=== PATIENT | female | born 1975 | race Caucasian/White ===

== ENCOUNTER 2020-11-21 10:12 | Inpatient (IN) | payer MEDICAID ==
[~2020-11-21] VITALS: Ht 165.1 cm; Wt 90.3 kg
--- NOTE | 2020-11-21 10:20 | NUR ---
resp. notified of pt.
[2020-11-21 10:58] LABS: BASOPHILS 0 % (0-2); EOSINOPHILS 8.1 % (0-7); HEMATOCRIT 36.7 % (36.0-48.0); HEMOGLOBIN 12.1 g/dL (12-16); IMMATURE GRANULOCYTES 0.6 % (0-5); LYMPHOCYTE ABS# 0.23 10x3/uL (1.18-3.74); LYMPHOCYTES 2.2 % (15-50); MCH 26.9 pg (26.0-34.0); MCV 81.7 fL (80.0-100.0); MEAN PLATELET VOLUME 10.6 fL (7.4-10.4); MONOCYTES 5.5 % (2-11); NEUTROPHIL ABS# 8.86 10x3/uL (1.56-6.13); NEUTROPHILS 83.6 % (40-80); PLATELET COUNT 155 10x3/uL (130-400); RBC 4.49 10x6/uL (4.00-5.40); RDW 14.7 % (11.5-14.5); WBC 10.6 10x3/uL (4.8-10.8)
[2020-11-21 11:06] LABS: CALC OSMOLALITY 268 mosm/kg (275-300); CALCIUM 8.7 mg/dL (8.5-10.1); CARBON DIOXIDE 22.3 mmol/L (21.0-32.0); CHLORIDE - SERUM 98 mmol/L (98-107); CREATININE - SERUM 1.3 mg/dL (0.6-1.3); GLUCOSE 98 mg/dL (74-106); POTASSIUM - SERUM 4.1 mmol/L (3.5-5.1); SODIUM 134 mmol/L (136-145); UREA NITROGEN 14 mg/dL (7-18); eGFR NON AFRICAN AMERICAN 47 mL/min (90-120)
[2020-11-21 11:07] LABS: APTT 36.7 SECONDS (22.8-39.4); INR 1.15 (0.85-1.17); PROTIME 13.7 SECONDS (11.6-15.0)
[2020-11-21 11:15] LABS: D-DIMER-QUANTITATIVE 2.37 ug/mLFEU (0.20-0.54)
[2020-11-21 11:24] LABS: ALBUMIN 2.9 g/dL (3.4-5.0); ALKALINE PHOSPHATASE 191 U/L (30-120); ALT (SGPT) 143 U/L (10-68); BILIRUBIN - TOTAL 1.04 mg/dL (0.2-1.3); CKMB 0.4 U/L (0.0-3.6); CREATINE KINASE 50 UL (21-215); PRO BNP 262 pg/mL (0-125); PROTEIN - SERUM 7.2 g/dL (6.4-8.2)
[2020-11-21 11:39] LABS: TROPONIN-I < 0.017 ng/mL (0.000-0.060)
[2020-11-21 12:03] LABS: BILIRUBIN 2+ (NEGATIVE); KETONE MODERATE mg/dL (NEGATIVE); NITRITE NEGATIVE (NEGATIVE); UROBILINOGEN 4 mg/dL (< 2)
[2020-11-21 12:04] LABS: BACTERIA MODERATE HPF (NONE SEEN); SQUAMOUS EPITHELIAL 0-5 HPF (0-4)
[2020-11-21 12:06] LABS: GRANULAR CAST 1 LPF (NONE SEEN)
[2020-11-21 12:31] VITALS: BP 90/34
[2020-11-21 13:06] VITALS: BP 86/51
[2020-11-21 13:24] VITALS: BP 93/56
[2020-11-21 14:09] LABS: SARS-CoV-2 ANTIGEN NEGATIVE- SARS-COV-2 (NEGATIVE)
--- NOTE | 2020-11-21 14:11 | NUR ---
SPOKE WITH NURSE AT [facility] REGARDING PT'S PSYCH DX PT WAS SENT TO US FROM THEIR FACILITY. NURSE STATES THAT PT WAS ADMITTED FOR SI, BIPOLAR W/PSYCHOTIC FEATURES, BORDERLINE PERSONALITY. NURSE STATES THAT THE PT'S HAS C/O SI HAS BEEN INTERMITTENT THE LAST SEVERAL DAYS. THE LAST DOCUMENTED "YES" TO SI WAS 11/19. PT WILL BE ADMITTED FOR PNEUMONIA A PUI AND A VISUAL MONITOR WILL BE PLACED IN PT'S ROOM FOR SAFETY. THE PT WILL BE EVALUATED BY PSYCH SERVICES WHEN FEELING BETTER MEDICALLY AND/OR NEEDED.
--- NOTE | 2020-11-21 14:27 | NUR ---
RECEIVED REPORT FROM ED. PATIENT TO UNIT SOON.
--- NOTE | 2020-11-21 14:35 | NUR ---
PATIENT ARRIVED TO UNIT VIA WHEELCHAIR FROM ED AND ADMITTED TO ROOM 2139. PATIENT PLACED IN DROPLET ISOLATION FOR PUI. COVID ANTIGEN NEGATIVE, AWAITING PCR TO RESULT. PATIENT ALERT/ORIENTED, DENIES ANY SUICIDIAL IDEATION TODAY. PATIENT IS PLACED ON VIDEO SO SHE CAN BE MONITORED WHILE ON DROPLET ISOLATION, PATIENT MADE AWARE SHE IS ON VIDEO. CALL LIGHT WITHIN REACH. NO DISTRESS.
[2020-11-21 16:07] VITALS: BP 94/58; BMI 33.1
--- NOTE | 2020-11-21 17:16 | NUR ---
RESTING IN BED WITH EYES OPEN, NO DISTRESS. CALL WITHIN REACH.
[2020-11-21] MEDS ORDERED: NEURONTIN600 MG PO (18:28)
[2020-11-21] MEDS ORDERED: DEPAKOTE500 MG PO (18:28)
[2020-11-21] MEDS ORDERED: MINIPRESS2 MG PO (18:29)
--- NOTE | 2020-11-21 19:30 | NUR ---
PT IN BED, AAO X 4, RESP EVEN AND UNLABORED, NO DISTRESS NOTED, CL IN REACH, SR UP X 2.
[2020-11-21 21:46] VITALS: BP 87/44
[2020-11-22 00:15] VITALS: BP 104/80
[2020-11-22 05:35] VITALS: BP 98/52
[2020-11-22 06:33] LABS: BASOPHILS 0.1 % (0-2); EOSINOPHILS 0.5 % (0-7); HEMATOCRIT 32.8 % (36.0-48.0); HEMOGLOBIN 10.8 g/dL (12-16); IMMATURE GRANULOCYTES 0.6 % (0-5); LYMPHOCYTE ABS# 0.33 10x3/uL (1.18-3.74); LYMPHOCYTES 3.9 % (15-50); MCH 26.7 pg (26.0-34.0); MCHC 32.9 g/dL (31.0-37.0); MEAN PLATELET VOLUME 10.3 fL (7.4-10.4); MONOCYTES 5.9 % (2-11); NEUTROPHIL ABS# 7.54 10x3/uL (1.56-6.13); PLATELET COUNT 134 10x3/uL (130-400); RBC 4.05 10x6/uL (4.00-5.40); RDW 14.2 % (11.5-14.5); WBC 8.5 10x3/uL (4.8-10.8)
--- NOTE | 2020-11-22 07:20 | NUR ---
RECIEVE REPORT. RESTING IN BED WITH EYES CLOSED. DENIES ANY NEEDS. CONTINUE PLAN OF CARE AND SAFETY PRECAUTIONS.
[2020-11-22 07:30] LABS: ALBUMIN 2.4 g/dL (3.4-5.0); ALKALINE PHOSPHATASE 162 U/L (30-120); ALT (SGPT) 114 U/L (10-68); BILIRUBIN - TOTAL 0.54 mg/dL (0.2-1.3); C-REACTIVE PROTEIN 13.6 mg/dL (0.0-0.9); CALCIUM 9.1 mg/dL (8.5-10.1); CARBON DIOXIDE 22.3 mmol/L (21.0-32.0); CHLORIDE - SERUM 103 mmol/L (98-107); FERRITIN 226 ng/mL (3-244); GLUCOSE 129 mg/dL (74-106); LDH 192 U/L (81-234); POTASSIUM - SERUM 4.6 mmol/L (3.5-5.1); PROTEIN - SERUM 6.4 g/dL (6.4-8.2); SODIUM 136 mmol/L (136-145)
[2020-11-22 07:36] LABS: CALC OSMOLALITY 275 mosm/kg (275-300); CREATININE - SERUM 0.8 mg/dL (0.6-1.3); UREA NITROGEN 19 mg/dL (7-18); eGFR NON AFRICAN AMERICAN 82 mL/min (90-120)
[2020-11-22 08:19] VITALS: BP 124/54
[2020-11-22 12:26] VITALS: BP 103/67
[2020-11-22 20:00] VITALS: BP 101/55
[2020-11-23 01:26] VITALS: BP 107/90
[2020-11-23 05:25] VITALS: BP 100/52
[2020-11-23 07:03] LABS: BASOPHILS 0.2 % (0-2); EOSINOPHILS 5.3 % (0-7); HEMATOCRIT 30.2 % (36.0-48.0); HEMOGLOBIN 9.7 g/dL (12-16); IMMATURE GRANULOCYTES 0.5 % (0-5); LYMPHOCYTES 6.9 % (15-50); MCH 26.1 pg (26.0-34.0); MCHC 32.1 g/dL (31.0-37.0); MCV 81.2 fL (80.0-100.0); MEAN PLATELET VOLUME 10.4 fL (7.4-10.4); MONOCYTES 13.4 % (2-11); NEUTROPHIL ABS# 7.51 10x3/uL (1.56-6.13); NEUTROPHILS 73.7 % (40-80); PLATELET COUNT 154 10x3/uL (130-400); RBC 3.72 10x6/uL (4.00-5.40); RDW 14.8 % (11.5-14.5); WBC 10.2 10x3/uL (4.8-10.8)
[2020-11-23 07:19] LABS: ALBUMIN 2.3 g/dL (3.4-5.0); ALKALINE PHOSPHATASE 146 U/L (30-120); ALT (SGPT) 118 U/L (10-68); BILIRUBIN - TOTAL 0.19 mg/dL (0.2-1.3); CALC OSMOLALITY 279 mosm/kg (275-300); CALCIUM 8.5 mg/dL (8.5-10.1); CHLORIDE - SERUM 108 mmol/L (98-107); CREATININE - SERUM 0.8 mg/dL (0.6-1.3); GLUCOSE 96 mg/dL (74-106); POTASSIUM - SERUM 4.1 mmol/L (3.5-5.1); PROTEIN - SERUM 5.9 g/dL (6.4-8.2); SODIUM 140 mmol/L (136-145); UREA NITROGEN 15 mg/dL (7-18); eGFR NON AFRICAN AMERICAN 82 mL/min (90-120)
--- NOTE | 2020-11-23 07:20 | NUR ---
RECIEVE REPORT. ALERT AND ORIENTED X4. SITTING UP IN BED WATCHING TV. DENIES ANY NEEDS. CONTINUE PLAN OF CARE AND SAFETY PRECAUTIONS.
[2020-11-23 09:45] VITALS: BP 108/62
[2020-11-23 13:20] VITALS: BP 110/67
[2020-11-23 21:00] VITALS: BP 101/63
[2020-11-24] VITALS: BP 113/69
[2020-11-24 04:00] VITALS: BP 108/50
--- NOTE | 2020-11-24 07:10 | NUR ---
Lying in bed, awake/alert/oriented, T/R self ad stanley, cont of B/B with BRPs per self ad stanley, denies pain/other discomfort at this time, call light/phone/water within reach, no s/s of acute distress observed.
[2020-11-24 07:15] LABS: IMMUNOGLOBULIN A 154 mg/dL (87-352); IMMUNOGLOBULIN G 832 mg/dL (586-1602)
[2020-11-24 08:13] VITALS: BP 104/69
[2020-11-24 16:08] VITALS: BP 108/56
--- NOTE | 2020-11-24 19:30 | NUR ---
PT IN BED, AAO X 4, RESP EVEN AND UNLABORED, NO DISTRESS NOTED, CL IN REACH, SR UP X 2.
[2020-11-24 21:00] VITALS: BP 163/83
[2020-11-25] VITALS: BP 118/68
--- NOTE | 2020-11-25 00:16 | NUR ---
I have reviewed this patient and I concur with the Shift Assessment completed by the Licensed Practical Nurse today this shift.
[2020-11-25 04:00] VITALS: BP 109/49
--- NOTE | 2020-11-25 07:20 | NUR ---
Sitting up in bed, awake/alert/oriented, T/R self ad stanley, cont of B/B with BRPs per self ad stanley, c/o throbbing LUTHER rated 9/10, medicated as ordered (see MAR), call light/phone/water within reach, no s/s of acute distress observed.
[2020-11-25 07:38] VITALS: BP 114/69
--- NOTE | 2020-11-25 09:00 | NUR ---
Received notice that pt is negative for Covid, called infection control and received ok to take off isolation at this time.
--- NOTE | 2020-11-25 09:51 | MORECARE ---
CASE MANAGEMENT DISCHARGE SUMMARY PATIENT: CONOR WAGNER UNIT: [id number] ADM DATE: 11/21/20 AGE: 45 : 76 SEX: F ROOM/BED: D.2139 AUTHOR: PRINCE,DOC PHYSICIAN: REFERRING PHYSICIAN: JOHNIE SPENCER MD DATE OF SERVICE: 11/25/20 Case Management Discharge Planning Summary DCP REVIEW SUMMARY ANTICIPATED D/C DATE: 11/25/2020 EXPECTED LOS : 4 CASE STATUS: DCP Initiated INITIAL REVIEW: 11/21/2020 INITIAL REVIEWER: Beatriz Boogie FINAL DISCHARGE DISPOSITION: : FINAL REVIEWER: FINAL REVIEW DATE: DCP Focus Questions & Answers QUESTION: ANSWER : PATIENT: CONOR WAGNER ENCOUNTER: [id number] MEDICAL RECORD#: [id number] ADMISSION DATE: 11/21/2020 DISCHARGE DATE: ATTENDING MD: : AGE: 45 MARITAL STATUS: W DC PLAN ID: [id number] FACILITY: [facility] PRINTED ON: 11/25/20 9:51 CT All edits/amendments must be made on the electronic document DICTATION DATE: 11/25/20950 MEDICAL SERVICES MANAGER: DM 11/25/20950 RPT#: [id number] DC DATE: STATUS: ADM IN [facility] [address] [place] [address] END OF REPORT
[2020-11-25] MEDS ORDERED: LEVAQUIN750 MG PO (09:59)
[2020-11-25] MEDS ORDERED: DULERA 100 MCG8.8 GM INH (10:00)
[2020-11-25] MEDS ORDERED: PROAIR HFA8.5 G1 INH (10:00)
--- NOTE | 2020-11-25 10:02 | MORECARE ---
CASE MANAGEMENT DISCHARGE SUMMARY PATIENT: CONOR WAGNER UNIT: [id number] ADM DATE: 11/21/20 AGE: 45 : 76 SEX: F ROOM/BED: D.3909 AUTHOR: PRINCE,DOC PHYSICIAN: REFERRING PHYSICIAN: JOHNIE SPENCER MD DATE OF SERVICE: 11/25/20 Case Management Discharge Planning Summary COMMENTS ENTERED DATE: 11/25/20 9:49 CT COMMENT TYPE: Discharge Planning REVIEWER: Beatriz Boogie CM MET WITH PATIENT THIS AM TO DISCUSS DCP AND ASSESS NEEDS. PT STATES THAT SHE IS A PATIENT AT [facility] FOR SUICIDAL IDEATIONS FOR 2-3 DAYS PRIOR TO THIS VISIT. PT STATES SHE WAS TRANSFERED TO [facility] FROM AN OUTSIDE HOSPITAL IN [facility]. PT STATES SHE HAS BEEN A PATIENT THERE FOR 2 DAYS AND BECAME INCREASINGLY SHORT OF BREATH. PT VOICES DESIRE TO RETURN TO [facility] AND COMPLETE HER STAY AND TREATMENT PLAN THERE. PT HAS BEEN DETERMINED TO BE MEDICALLY STABLE AND DISCHARGED FROM HOSPITAL. [facility] NOTIFIED BY THIS CM AND WAS INFORMED BY LORNA RN THAT SHE WAS NOT SEEING ANY INFORMATION ON THIS PATIENT. SHE PLANS TO LOOK FURTHER INTO THIS PATIENT AND CALL CM BACK. PT STATES ALL HER BELONGINGS ARE AT [facility] AND OTHERWISE SHE IS HOMELESS. FOLLOW UP CALL RECEIVED FROM LORNA AND REQUESTED CLINICAL DOCUMENTATION WILL BE FAXED TO HER AT [phone]. DCP REVIEW SUMMARY ANTICIPATED D/C DATE: 11/25/2020 EXPECTED LOS : 4 CASE STATUS: DCP Initiated INITIAL REVIEW: 11/21/2020 INITIAL REVIEWER: Beatriz Boogie FINAL DISCHARGE DISPOSITION: : FINAL REVIEWER: FINAL REVIEW DATE: DCP Focus Questions & Answers QUESTION: ANSWER : PATIENT: CONOR WAGNER ENCOUNTER: [id number] MEDICAL RECORD#: [id number] ADMISSION DATE: 11/21/2020 DISCHARGE DATE: ATTENDING MD: : AGE: 45 MARITAL STATUS: W DC PLAN ID: [id number] FACILITY: [facility] PRINTED ON: 11/25/20 10:01 CT All edits/amendments must be made on the electronic document DICTATION DATE: 11/25/20 100 PREPARED FOODS TEAM LEADER: BLAYNE 11/25/20 1001 RPT#: [id number] DC DATE: STATUS: ADM IN [facility] [address] [place] [address] END OF REPORT
[2020-11-25] MEDS ORDERED: TESSALON PERLE100 MG PO (10:03)
[2020-11-25] MEDS ORDERED: FLORAJEN DIGES1 EACH PO (10:04)
[2020-11-25] MEDS ORDERED: MUCINEX DM ER1 EAC1 PO (10:05)
--- NOTE | 2020-11-25 12:15 | NUR ---
Provided written/verbal discharge instructions to which pt voiced understanding, awaiting decision from [facility] as to whether she will be returning to them.
[2020-11-25 13:12] LABS: PROCALCITONIN 0.68 ng/mL (0.00-0.08)
--- NOTE | 2020-11-25 15:45 | MORECARE ---
CASE MANAGEMENT DISCHARGE SUMMARY PATIENT: CONOR WAGNER UNIT: [id number] ADM DATE: 11/21/20 AGE: 45 : 76 SEX: F ROOM/BED: D.5488 AUTHOR: PRINCE,DOC PHYSICIAN: REFERRING PHYSICIAN: JOHNIE SPENCER MD DATE OF SERVICE: 11/25/20 Case Management Discharge Planning Summary COMMENTS ENTERED DATE: 11/25/20 9:49 CT COMMENT TYPE: Discharge Planning REVIEWER: Beatriz Boogie CM MET WITH PATIENT THIS AM TO DISCUSS DCP AND ASSESS NEEDS. PT STATES THAT SHE IS A PATIENT AT [facility] FOR SUICIDAL IDEATIONS FOR 2-3 DAYS PRIOR TO THIS VISIT. PT STATES SHE WAS TRANSFERED TO [facility] FROM AN OUTSIDE HOSPITAL IN [facility]. PT STATES SHE HAS BEEN A PATIENT THERE FOR 2 DAYS AND BECAME INCREASINGLY SHORT OF BREATH. PT VOICES DESIRE TO RETURN TO [facility] AND COMPLETE HER STAY AND TREATMENT PLAN THERE. PT HAS BEEN DETERMINED TO BE MEDICALLY STABLE AND DISCHARGED FROM HOSPITAL. [facility] NOTIFIED BY THIS CM AND WAS INFORMED BY LORNA RN THAT SHE WAS NOT SEEING ANY INFORMATION ON THIS PATIENT. SHE PLANS TO LOOK FURTHER INTO THIS PATIENT AND CALL CM BACK. PT STATES ALL HER BELONGINGS ARE AT [facility] AND OTHERWISE SHE IS HOMELESS. FOLLOW UP CALL RECEIVED FROM LORNA AND REQUESTED CLINICAL DOCUMENTATION WILL BE FAXED TO HER AT [phone]. Appended by Beatriz Boogie on 11/25/2020 15:43 CDT: UPDATE TO PREVIOUS NOTE, HAVE FAXED REQUESTED DOCUMENTS TO [facility]. RECEIVED CALL FROM LORNA THAT PATIENT NO LONGER MEETS CRITERIA FOR ADMITTANCE. ORDER OBTAINED FOR PSYCH EVAL TO FACILITATE DISCHARGE. WILL FOLLOW UP ONCE EVAL IS COMPLETED. DCP REVIEW SUMMARY ANTICIPATED D/C DATE: 11/25/2020 EXPECTED LOS : 4 CASE STATUS: DCP Initiated INITIAL REVIEW: 11/21/2020 INITIAL REVIEWER: Beatriz Boogie FINAL DISCHARGE DISPOSITION: : FINAL REVIEWER: FINAL REVIEW DATE: DCP Focus Questions & Answers QUESTION: ANSWER : PATIENT: CONOR WAGNER ENCOUNTER: [id number] MEDICAL RECORD#: [id number] ADMISSION DATE: 11/21/2020 DISCHARGE DATE: ATTENDING MD: : AGE: 45 MARITAL STATUS: W DC PLAN ID: [id number] FACILITY: [facility] PRINTED ON: 11/25/20 15:45 CT All edits/amendments must be made on the electronic document DICTATION DATE: 11/25/20 154 CORRECTIONAL MAINTENANCE TECHNICIAN: BLAYNE 11/25/201544 RPT#: [id number] DC DATE: STATUS: ADM IN [facility] [address] [place] [address] END OF REPORT
[2020-11-25 16:08] VITALS: BP 124/77
--- NOTE | 2020-11-25 16:16 | NUR ---
Has been crying all afternoon and stressing over her placement after discharging, paged Dr. Giordano.
--- NOTE | 2020-11-25 16:25 | NUR ---
Received order from Dr. Westbrook for Ativan 0.5mg PO q6h PRN.
--- NOTE | 2020-11-25 19:30 | NUR ---
PT IN BED, AAO X 4, RESP EVEN AND UNLABORED, NO DISTRESS NOTED, CL IN REACH, SR UP X 2.
[2020-11-25 21:00] VITALS: BP 119/65
[2020-11-26] VITALS: BP 105/46
[2020-11-26 04:00] VITALS: BP 98/51
--- NOTE | 2020-11-26 04:10 | NUR ---
I have reviewed this patient and I concur with the Shift Assessment completed by the Licensed Practical Nurse today this shift.
--- NOTE | 2020-11-26 07:40 | NUR ---
Sitting up in bed, awake/alert/oriented, T/R self ad stanley, cont of B/B with BRPs per self ad stanley, denies pain/other discomfort at this time, call light/phone/water within reach, no s/s of acute distress observed.
[2020-11-26 08:40] VITALS: BP 102/70
[2020-11-26 11:40] VITALS: BP 101/67
--- NOTE | 2020-11-26 15:20 | NUR ---
In room yelling/stomping/screaming in frustration, went in and encouraged to use calming techniques, like slow deep breathing and yoga-like centering, to calm herself.
--- NOTE | 2020-11-26 16:00 | NUR ---
Lying in room with eyes closed and slow/deep respirations.
[2020-11-26 19:09] LABS: IMMUNOGLOBULIN E 115 IU/mL (6-495)
--- NOTE | 2020-11-26 19:30 | NUR ---
PT UP ON SIDE OF BED, AAO X 4, RESP EVEN AND UNLABORED, NO DISTRESS NOTED, CL IN REACH, SR UP X 2.
--- NOTE | 2020-11-26 19:49 | MORECARE ---
CASE MANAGEMENT DISCHARGE SUMMARY PATIENT: CONOR WAGNER UNIT: [id number] ADM DATE: 11/21/20 AGE: 45 : 77 SEX: F ROOM/BED: D.1579 AUTHOR: PRINCE,DOC PHYSICIAN: REFERRING PHYSICIAN: JOHNIE SPENCER MD DATE OF SERVICE: 11/26/20 Case Management Discharge Planning Summary COMMENTS ENTERED DATE: 11/26/20 19:37 CT COMMENT TYPE: Discharge Planning REVIEWER: Ciltalli Davis CM sent referral to [facility] in [place] and they called back denied patient d/t not clinically in need for acute inpatient psych. CM sent updated notes to [facility] awaiting a determination. CM received a call from Kera Luevano with Psych she stated that she had spoken with [facility] and they need additional documentation on patient and she plans to put that documentation in chart tonight so CM can send referral back to [facility] in am. ENTERED DATE: 11/25/20 9:49 CT COMMENT TYPE: Discharge Planning REVIEWER: Beatriz Boogie CM MET WITH PATIENT THIS AM TO DISCUSS DCP AND ASSESS NEEDS. PT STATES THAT SHE IS A PATIENT AT [facility] FOR SUICIDAL IDEATIONS FOR 2-3 DAYS PRIOR TO THIS VISIT. PT STATES SHE WAS TRANSFERED TO [facility] FROM AN OUTSIDE HOSPITAL IN [facility]. PT STATES SHE HAS BEEN A PATIENT THERE FOR 2 DAYS AND BECAME INCREASINGLY SHORT OF BREATH. PT VOICES DESIRE TO RETURN TO [facility] AND COMPLETE HER STAY AND TREATMENT PLAN THERE. PT HAS BEEN DETERMINED TO BE MEDICALLY STABLE AND DISCHARGED FROM HOSPITAL. [facility] NOTIFIED BY THIS CM AND WAS INFORMED BY LORNA RODRIGUEZ THAT SHE WAS NOT SEEING ANY INFORMATION ON THIS PATIENT. SHE PLANS TO LOOK FURTHER INTO THIS PATIENT AND CALL CM BACK. PT STATES ALL HER BELONGINGS ARE AT [facility] AND OTHERWISE SHE IS HOMELESS. FOLLOW UP CALL RECEIVED FROM LORNA AND REQUESTED CLINICAL DOCUMENTATION WILL BE FAXED TO HER AT [phone]. Appended by Beatriz Boogie on 11/25/2020 15:43 CDT: UPDATE TO PREVIOUS NOTE, HAVE FAXED REQUESTED DOCUMENTS TO [facility]. RECEIVED CALL FROM LORNA THAT PATIENT NO LONGER MEETS CRITERIA FOR ADMITTANCE. ORDER OBTAINED FOR PSYCH EVAL TO FACILITATE DISCHARGE. WILL FOLLOW UP ONCE EVAL IS COMPLETED. DCP REVIEW SUMMARY ANTICIPATED D/C DATE: 11/25/2020 EXPECTED LOS : 4 CASE STATUS: DCP Initiated INITIAL REVIEW: 11/21/2020 INITIAL REVIEWER: Beatriz Boogie FINAL DISCHARGE DISPOSITION: : FINAL REVIEWER: FINAL REVIEW DATE: DCP Focus Questions & Answers QUESTION: ANSWER : PATIENT: CONOR WAGNER ENCOUNTER: [id number] MEDICAL RECORD#: [id number] ADMISSION DATE: 11/21/2020 DISCHARGE DATE: ATTENDING MD: : AGE: 45 MARITAL STATUS: W DC PLAN ID: [id number] FACILITY: [facility] PRINTED ON: 11/26/20 19:48 CT All edits/amendments must be made on the electronic document DICTATION DATE: 11/26/201947 OUTBOUND SALES SPECIALIST: BLAYNE 11/26/201947 RPT#: [id number] DC DATE: STATUS: ADM IN [facility] [address] [place] [address] END OF REPORT
[2020-11-26 23:18] VITALS: BP 107/66
[2020-11-27 05:18] VITALS: BP 106/60
--- NOTE | 2020-11-27 06:50 | NUR ---
PT LYING IN BED WITH EYES CLOSED. RAISES TO VERBAL STIMULI. RESP EVEN AND UNLABORED. AAO X4. DENIES NEEDS AT THIS TIME. CLIR. BED IN LOWEST POSITION. SIDE RAILS X2
[2020-11-27 08:13] VITALS: BP 113/61
[2020-11-27 12:41] VITALS: BP 113/65
[2020-11-27 14:16] VITALS: Ht 165.1 cm; Wt 90.3 kg
--- NOTE | 2020-11-27 15:51 | NUR ---
PT TOLD DR. SPENCER THAT SHE WAS HAVING SUICIDAL THOUGHTS. PT ANSWERED YES TO ALL QUESTIONS IN SUICIDAL SCREENING TOOL. CHARGE NURSE, NIURKA RODRIGUEZ, NOTIFIED. [facility] NOTIFIED, AND THEY SAID PT WAS SCREENED YESTERDAY AND THERE WAS NOTHING MORE TO DO. CASE MANAGEMENT NOTIFIED. PT RECIEVED PLACEMENT TO [facility]. ESDRASTER AT BEDSIDE.
--- NOTE | 2020-11-27 16:06 | MORECARE ---
CASE MANAGEMENT DISCHARGE SUMMARY PATIENT: CONOR WAGNER UNIT: [id number] ADM DATE: 11/21/20 AGE: 45 : 77 SEX: F ROOM/BED: D.0249 AUTHOR: PRINCE,DOC PHYSICIAN: REFERRING PHYSICIAN: JOHNIE SPENCER MD DATE OF SERVICE: 11/27/20 Case Management Discharge Planning Summary COMMENTS ENTERED DATE: 11/27/20 15:53 CT COMMENT TYPE: Discharge Planning REVIEWER: Beatriz Boogie Pt accepted back to [facility] today per Olvin. Pt nurse Liliana informed phone number given for report. ENTERED DATE: 11/26/20 19:37 CT COMMENT TYPE: Discharge Planning REVIEWER: Citlalli Davis CM sent referral to [facility] in [place] and they called back denied patient d/t not clinically in need for acute inpatient psych. CM sent updated notes to [facility] awaiting a determination. CM received a call from Kera Luevano with Psych she stated that she had spoken with [facility] and they need additional documentation on patient and she plans to put that documentation in chart tonight so CM can send referral back to [facility] in am. ENTERED DATE: 11/25/20 9:49 CT COMMENT TYPE: Discharge Planning REVIEWER: Beatriz Boogie CM MET WITH PATIENT THIS AM TO DISCUSS DCP AND ASSESS NEEDS. PT STATES THAT SHE IS A PATIENT AT [facility] FOR SUICIDAL IDEATIONS FOR 2-3 DAYS PRIOR TO THIS VISIT. PT STATES SHE WAS TRANSFERED TO [facility] FROM AN OUTSIDE HOSPITAL IN [facility]. PT STATES SHE HAS BEEN A PATIENT THERE FOR 2 DAYS AND BECAME INCREASINGLY SHORT OF BREATH. PT VOICES DESIRE TO RETURN TO [facility] AND COMPLETE HER STAY AND TREATMENT PLAN THERE. PT HAS BEEN DETERMINED TO BE MEDICALLY STABLE AND DISCHARGED FROM HOSPITAL. [facility] NOTIFIED BY THIS CM AND WAS INFORMED BY LORNA RN THAT SHE WAS NOT SEEING ANY INFORMATION ON THIS PATIENT. SHE PLANS TO LOOK FURTHER INTO THIS PATIENT AND CALL CM BACK. PT STATES ALL HER BELONGINGS ARE AT [facility] AND OTHERWISE SHE IS HOMELESS. FOLLOW UP CALL RECEIVED FROM LORNA AND REQUESTED CLINICAL DOCUMENTATION WILL BE FAXED TO HER AT [phone]. Appended by Beatriz Boogie on 11/25/2020 15:43 CDT: UPDATE TO PREVIOUS NOTE, HAVE FAXED REQUESTED DOCUMENTS TO [facility]. RECEIVED CALL FROM LORNA THAT PATIENT NO LONGER MEETS CRITERIA FOR ADMITTANCE. ORDER OBTAINED FOR PSYCH EVAL TO FACILITATE DISCHARGE. WILL FOLLOW UP ONCE EVAL IS COMPLETED. DCP REVIEW SUMMARY ANTICIPATED D/C DATE: 11/25/2020 EXPECTED LOS : 4 CASE STATUS: DCP Initiated INITIAL REVIEW: 11/21/2020 INITIAL REVIEWER: Beatriz Boogie FINAL DISCHARGE DISPOSITION: : FINAL REVIEWER: FINAL REVIEW DATE: MAP Focus Questions & Answers QUESTION: ANSWER : PATIENT: CONOR WAGNER ENCOUNTER: [id number] MEDICAL RECORD#: [id number] ADMISSION DATE: 11/21/2020 DISCHARGE DATE: ATTENDING MD: : AGE: 45 MARITAL STATUS: W DC PLAN ID: [id number] FACILITY: [facility] PRINTED ON: 11/27/20 16:06 CT All edits/amendments must be made on the electronic document DICTATION DATE: 11/27/201605 BRANCH MANAGER: BLAYNE 11/27/201605 [facility]#: [id number] DC DATE: STATUS: ADM IN [facility] [address] [place] [address] END OF REPORT
--- NOTE | 2020-11-27 17:16 | NUR ---
PT DC TO [facility]IA [facility]. REPORT CALLED TO [facility]. DC INSTRUCTIONS AND CURRENT MED LIST SENT WITH PT.
--- NOTE | 2020-11-29 19:04 | MORECARE ---
CASE MANAGEMENT DISCHARGE SUMMARY PATIENT: CONOR WAGNER UNIT: [id number] ADM DATE: 11/21/20 AGE: 45 : 77 SEX: F ROOM/BED: D.7409 AUTHOR: PRINCE,DOC PHYSICIAN: REFERRING PHYSICIAN: JOHNIE SPNECER MD DATE OF SERVICE: 11/29/20 Case Management Discharge Planning Summary COMMENTS ENTERED DATE: 11/27/20 15:53 CT COMMENT TYPE: Discharge Planning REVIEWER: Beatriz Boogie Pt accepted back to [facility] today per Olvin. Pt nurse Liliana informed phone number given for report. ENTERED DATE: 11/26/20 19:37 CT COMMENT TYPE: Discharge Planning REVIEWER: Citlalli Davis CM sent referral to [facility] in [place] and they called back denied patient d/t not clinically in need for acute inpatient psych. CM sent updated notes to [facility] awaiting a determination. CM received a call from Kera Luevano with Psych she stated that she had spoken with [facility] and they need additional documentation on patient and she plans to put that documentation in chart tonight so CM can send referral back to [facility] in am. ENTERED DATE: 11/25/20 9:49 CT COMMENT TYPE: Discharge Planning REVIEWER: Beatriz Boogie CM MET WITH PATIENT THIS AM TO DISCUSS DCP AND ASSESS NEEDS. PT STATES THAT SHE IS A PATIENT AT [facility] FOR SUICIDAL IDEATIONS FOR 2-3 DAYS PRIOR TO THIS VISIT. PT STATES SHE WAS TRANSFERED TO [facility] FROM AN OUTSIDE HOSPITAL IN [facility]. PT STATES SHE HAS BEEN A PATIENT THERE FOR 2 DAYS AND BECAME INCREASINGLY SHORT OF BREATH. PT VOICES DESIRE TO RETURN TO [facility] AND COMPLETE HER STAY AND TREATMENT PLAN THERE. PT HAS BEEN DETERMINED TO BE MEDICALLY STABLE AND DISCHARGED FROM HOSPITAL. [facility] NOTIFIED BY THIS CM AND WAS INFORMED BY LORNA RN THAT SHE WAS NOT SEEING ANY INFORMATION ON THIS PATIENT. SHE PLANS TO LOOK FURTHER INTO THIS PATIENT AND CALL CM BACK. PT STATES ALL HER BELONGINGS ARE AT [facility] AND OTHERWISE SHE IS HOMELESS. FOLLOW UP CALL RECEIVED FROM LORNA AND REQUESTED CLINICAL DOCUMENTATION WILL BE FAXED TO HER AT [phone]. Appended by Beatriz Boogie on 11/25/2020 15:43 CDT: UPDATE TO PREVIOUS NOTE, HAVE FAXED REQUESTED DOCUMENTS TO [facility]. RECEIVED CALL FROM LORNA THAT PATIENT NO LONGER MEETS CRITERIA FOR ADMITTANCE. ORDER OBTAINED FOR PSYCH EVAL TO FACILITATE DISCHARGE. WILL FOLLOW UP ONCE EVAL IS COMPLETED. DCP REVIEW SUMMARY ANTICIPATED D/C DATE: 11/25/2020 EXPECTED LOS : 4 CASE STATUS: DCP Initiated INITIAL REVIEW: 11/21/2020 INITIAL REVIEWER: Beatriz Boogie FINAL DISCHARGE DISPOSITION: : FINAL REVIEWER: FINAL REVIEW DATE: VTP Focus Questions & Answers QUESTION: ANSWER : PATIENT: CONOR WAGNER ENCOUNTER: [id number] MEDICAL RECORD#: [id number] ADMISSION DATE: 11/21/2020 DISCHARGE DATE: 11/27/2020 ATTENDING MD: : AGE: 45 MARITAL STATUS: W DC PLAN ID: [id number] FACILITY: [facility] PRINTED ON: 11/29/20 19:04 CT All edits/amendments must be made on the electronic document DICTATION DATE: 11/29/201903 DIRECTOR OF CORPORATE REAL ESTATE: BLAYNE 11/29/201903 RPT#: [id number] DC DATE:11/27/20 STATUS: DIS IN [facility] [address] [place] [address] END OF REPORT
--- NOTE | 2020-11-30 11:14 | MORECARE ---
CASE MANAGEMENT DISCHARGE SUMMARY PATIENT: CONOR WAGNER UNIT: [id number] ADM DATE: 11/21/20 AGE: 45 : 77 SEX: F ROOM/BED: D.7709 AUTHOR: PRINCE,DOC PHYSICIAN: REFERRING PHYSICIAN: JOHNIE SPENCER MD DATE OF SERVICE: 11/30/20 Case Management Discharge Planning Summary COMMENTS ENTERED DATE: 11/27/20 15:53 CT COMMENT TYPE: Discharge Planning REVIEWER: Beatriz Boogie Pt accepted back to [facility] today per Olvin. Pt nurse Liliana informed phone number given for report. ENTERED DATE: 11/26/20 19:37 CT COMMENT TYPE: Discharge Planning REVIEWER: Citlalli Davis CM sent referral to [facility] in [place] and they called back denied patient d/t not clinically in need for acute inpatient psych. CM sent updated notes to [facility] awaiting a determination. CM received a call from Kera Luevano with Psych she stated that she had spoken with [facility] and they need additional documentation on patient and she plans to put that documentation in chart tonight so CM can send referral back to [facility] in am. ENTERED DATE: 11/25/20 9:49 CT COMMENT TYPE: Discharge Planning REVIEWER: Beatriz Boogie CM MET WITH PATIENT THIS AM TO DISCUSS DCP AND ASSESS NEEDS. PT STATES THAT SHE IS A PATIENT AT [facility] FOR SUICIDAL IDEATIONS FOR 2-3 DAYS PRIOR TO THIS VISIT. PT STATES SHE WAS TRANSFERED TO [facility] FROM AN OUTSIDE HOSPITAL IN [facility]. PT STATES SHE HAS BEEN A PATIENT THERE FOR 2 DAYS AND BECAME INCREASINGLY SHORT OF BREATH. PT VOICES DESIRE TO RETURN TO [facility] AND COMPLETE HER STAY AND TREATMENT PLAN THERE. PT HAS BEEN DETERMINED TO BE MEDICALLY STABLE AND DISCHARGED FROM HOSPITAL. [facility] NOTIFIED BY THIS CM AND WAS INFORMED BY LORNA RN THAT SHE WAS NOT SEEING ANY INFORMATION ON THIS PATIENT. SHE PLANS TO LOOK FURTHER INTO THIS PATIENT AND CALL CM BACK. PT STATES ALL HER BELONGINGS ARE AT [facility] AND OTHERWISE SHE IS HOMELESS. FOLLOW UP CALL RECEIVED FROM LORNA AND REQUESTED CLINICAL DOCUMENTATION WILL BE FAXED TO HER AT [phone]. Appended by Beatriz Boogie on 11/25/2020 15:43 CDT: UPDATE TO PREVIOUS NOTE, HAVE FAXED REQUESTED DOCUMENTS TO [facility]. RECEIVED CALL FROM LORNA THAT PATIENT NO LONGER MEETS CRITERIA FOR ADMITTANCE. ORDER OBTAINED FOR PSYCH EVAL TO FACILITATE DISCHARGE. WILL FOLLOW UP ONCE EVAL IS COMPLETED. DCP REVIEW SUMMARY ANTICIPATED D/C DATE: 11/25/2020 EXPECTED LOS : 4 CASE STATUS: DCP Initiated INITIAL REVIEW: 11/21/2020 INITIAL REVIEWER: Beatriz Boogie FINAL DISCHARGE DISPOSITION: : FINAL REVIEWER: FINAL REVIEW DATE: GAP Focus Questions & Answers QUESTION: ANSWER : PATIENT: CONOR WAGNER ENCOUNTER: [id number] MEDICAL RECORD#: [id number] ADMISSION DATE: 11/21/2020 DISCHARGE DATE: 11/27/2020 ATTENDING MD: : AGE: 45 MARITAL STATUS: W DC PLAN ID: [id number] FACILITY: [facility] PRINTED ON: 11/30/20 11:13 CT All edits/amendments must be made on the electronic document DICTATION DATE: 11/30/201112 TREE CHIPPER: BLAYNE 11/30/201112 RPT#: [id number] DC DATE:11/27/20 STATUS: DIS IN [facility] [address] [place] [address] END OF REPORT
[2020-11-30 13:10] LABS: IGG SUBCLASS 1 500 mg/dL (248-810); IGG SUBCLASS 2 279 mg/dL (130-555); IGG SUBCLASS 3 81 mg/dL (15-102); IGG SUBCLASS 4 9 mg/dL (2-96); IGGS - IGG SERUM 898 mg/dL (586-1602)
== END 2020-11-27 17:17 | disposition short-term general hospital (02) | DRG 190 ==
LOC: D.ER 10:12 → D.M2 12:51
PROVIDERS: Family Medicine; Internal Medicine Pulmonary Disease; ADMIT Emergency Medicine; ATTEND Emergency Medicine
DX: J43.9 Emphysema, unspecified (principal); J18.9 Pneumonia, unspecified organism; J98.11 Atelectasis; N39.0 Urinary tract infection, site not specified; F31.32 Bipolar disorder, current episode depressed, moderate; Z20.822 Contact with and (suspected) exposure to COVID-19; F20.9 Schizophrenia, unspecified; Z59.0 Homelessness